=== PATIENT | female | born 1970 | race Hispanic/Latino ===

== ENCOUNTER 2018-07-15 23:58 | Emergency (ER) | payer OTHER ==
[2018-07-16 01:02] LABS: #Lymphocytes 2.6 thou/uL (1.20-3.40); #Monocytes 0.4 thou/uL (0.11-0.59); #Neutrophils 7.7 thou/uL (1.40-6.50); %Basophils 0.2 % (0.0-1.0); %Eosinophils 0.4 % (0.0-10.0); %Lymphocytes 23.8 % (21.0-51.0); %Monocytes 3.6 % (0.0-10.0); Hemoglobin 12.9 g/dL (12.0-16.0); Mean Corpuscular Hemoglobin 26.6 pg (27.0-31.0); Mean Corpuscular Volume 83.4 fL (78.0-98.0); Platelet Count 360 thou/uL (130-400); RBC Distribution Width 15.1 % (11.5-14.5); Red Blood Cell (RBC) Count 4.83 mill/uL (4.20-5.40); White Blood Cell (WBC) Count 10.7 thou/uL (4.8-10.8)
[2018-07-16 01:19] LABS: ALT (SGPT) 18 U/L (8-55); AST (SGOT) 14 U/L (5-34); Albumin 4.2 g/dL (3.5-5.0); Alkaline Phosphatase 114 U/L (40-150); Anion Gap 15 mmol/L (10-20); BUN (Urea Nitrogen) 9 mg/dL (7.0-18.7); Bilirubin, Total 0.3 mg/dL (0.2-1.2); Calc. Creatinine Clearance 0 mL/min (70-130); Calcium 9.9 mg/dL (7.8-10.44); Carbon Dioxide 23 mmol/L (22-29); Chloride 108 mmol/L (98-107); Estimated GFR-MDRD 70; Globulin 3.7 g/dL (2.4-3.5); Glucose 151 mg/dL (70-105); Potassium 3.9 mmol/L (3.5-5.1); Protein, Total 7.9 g/dL (6.0-8.3); Sodium 142 mmol/L (136-145)
== END 2018-07-16 01:54 | disposition home or self-care (01) ==
LOC: ERS 23:58
DX: J02.9 Acute pharyngitis, unspecified (principal); I10 Essential (primary) hypertension; F17.210 Nicotine dependence, cigarettes, uncomplicated; Z79.899 Other long term (current) drug therapy
CPT/HCPCS: 36415; 80053; 85025; 87081; 87430; 99283

== ENCOUNTER 2018-08-04 13:49 | Observation (INO) | payer OTHER ==
[2018-08-04 14:25] LABS: #Basophils 0.2 thou/uL (0.0-0.2); #Eosinphils 0.1 thou/uL (0.0-0.7); #Lymphocytes 4.1 thou/uL (1.20-3.40); #Monocytes 0.7 thou/uL (0.11-0.59); #Neutrophils 7.8 thou/uL (1.40-6.50); %Basophils 1.5 % (0.0-1.0); %Lymphocytes 31.7 % (21.0-51.0); %Monocytes 5.4 % (0.0-10.0); %Neutrophils 60.4 % (42.0-75.0); Hemoglobin 13.4 g/dL (12.0-16.0); Mean Corpuscular HGB CONC 31.6 g/dL (32.0-36.0); Mean Corpuscular Hemoglobin 25.2 pg (27.0-31.0); Mean Corpuscular Volume 79.7 fL (78.0-98.0); Mean Platelet Volume 6.6 fL (7.4-10.4); Platelet Count 353 thou/uL (130-400); RBC Distribution Width 14.7 % (11.5-14.5); Red Blood Cell (RBC) Count 5.34 mill/uL (4.20-5.40); White Blood Cell (WBC) Count 12.9 thou/uL (4.8-10.8)
[2018-08-04 14:33] LABS: INR-International Normal Ratio 0.9; PTT 29.9 SEC (22.9-36.1); Prothrombin Time 12.4 SEC (12.0-14.7)
[2018-08-04 14:40] LABS: Anion Gap 17 mmol/L (10-20); BUN (Urea Nitrogen) 9 mg/dL (7.0-18.7); Calc. Creatinine Clearance 0 mL/min (70-130); Calcium 10.6 mg/dL (7.8-10.44); Carbon Dioxide 23 mmol/L (22-29); Chloride 104 mmol/L (98-107); Estimated GFR-MDRD 75; Glucose 100 mg/dL (70-105); Potassium 4.2 mmol/L (3.5-5.1); Sodium 140 mmol/L (136-145)
[2018-08-04 14:59] LABS: Bilirubin Negative (Negative); Blood, Urine Trace (Negative); Clarity Clear (Clear); Glucose, Urine (Dipstick) Negative (Negative); Leukocyte Negative (Negative); Nitrite Negative (Negative); Protein, Urine (Dipstick) Negative (Neg-Trace); Specific Gravity, Urine Greater than 1.035 (1.002-1.036); Urobilinogen 0.2 mg/dL (0.2-1.0); pH, Urine 6.5 (5.0-9.0)
[2018-08-04 15:00] LABS: RBC/HPF 0-3 HPF (0-3); Squamous Epithelial 0-3 HPF (0-3); WBC/HPF 0-3 HPF (0-3)
[2018-08-04 15:01] LABS: Bacteria/HPF None Seen HPF (None Seen)
[2018-08-04 15:02] LABS: Pregu Control Background? CLEAR/WHITE (CLR/WHITE); Pregu Control Bar Appear? YES (CONTROL BAR); Specific Gravity Greater than 1.035 (1.002-1.036)
[2018-08-04 15:04] LABS: Pregnancy Test - Urine (BHCG) Negative (Negative)
[2018-08-04 15:07] LABS: Amphetamine Not Detected (NotDetected); Barbiturates Screen Not Detected (NotDetected); Benzodiazepine Screen Not Detected (NotDetected); Cocaine Metabolite Screen Not Detected (NotDetected); Medtox Control Line Valid? VALID (VALID); Methadone Not Detected (NotDetected); Methamphetamine Not Detected (NotDetected); Opiate Screen Detected (NotDetected); Oxycodone Screen Not Detected (NotDetected); Phencyclidine (PCP) Not Detected (NotDetected); THC/Cannabinoid Screen Not Detected (NotDetected); Tricyclic Screen Not Detected (NotDetected)
--- NOTE | 2018-08-04 15:47 | CT ---
CT ANGIOGRAM OF HEAD: Date: 08/04/18 COMPARISON: None. FINDINGS: NONCONTRAST HEAD CT: Limited evaluation due to motion. No parenchymal hemorrhage. No extra-axial hematoma. No midline shif t. Basilar cisterns are patent. Brain volume is age-appropriate. Cortical colon-white matter different iation is preserved. No hydrocephalus. Calvarium is intact. Adequate aeration of the sinuses and mastoid air cells. On the postcontrast images, there is no pathologic enhancement of the brain parenchyma. CT ANGIOGRAM: There is symmetric enhancement and luminal diameter of the distal cervical and intracranial internal carotid arteries. Anterior Circulation: A1 and M1 segments have appropriate enhancement and luminal diameter. Proximal MCA branches and A2 segments are symmetric. Both intracranial vertebral arteries are unremarkable. Bilateral PICA artery origins and the basilar artery have appropriate enhancement and luminal diameter. Both P1 segments are unremarkable. IMPRESSION: Unremarkable CT angiogram of the [place]. Results of study discussed with Dr. Mccullough on 08/04/18 at 1438 hours. CODE CR. POS: LASHELL
[2018-08-04] MEDS ORDERED: Iopamidol 370 76% 100 ML VIAL ONE (16:57)
[2018-08-04 18:01] VITALS: BMI 33.5
[2018-08-04] MEDS ORDERED: Ondansetron PF 4 MG/2 ML Vial IVP PRN (18:29)
[2018-08-04] MEDS ORDERED: Acetaminophen 325 MG TAB PO PRN (18:29)
[2018-08-04] MEDS ORDERED: Ondansetron ODT 4 MG TAB SL PRN (18:29)
[2018-08-04] MEDS ORDERED: Aspirin 325 mg Enteric Coated Tablet PO SCH (21:00)
[2018-08-04] MEDS ORDERED: Labetalol HCl 100 MG/20 ML VIAL SLOW IVP PRN (21:32)
[2018-08-04] MEDS ORDERED: hydrALAZINE 20 MG/ML VIAL SLOW IVP PRN (21:32)
[2018-08-04] MEDS ORDERED: Benzonatate 100 MG CAP PO PRN (21:35)
[2018-08-04] MEDS ORDERED: guaiFENesin/Codeine Phosphate 200 mg/20 mg 10 ml UD Cup PO SCH (22:00)
[2018-08-05] MEDS: Sodium Chloride 0.9% 1,000 ML IV SCH ×3 (00:04→20:12)
[2018-08-05 06:14] LABS: #Eosinphils 0.1 thou/uL (0.0-0.7); #Lymphocytes 2.7 thou/uL (1.20-3.40); #Monocytes 0.5 thou/uL (0.11-0.59); #Neutrophils 5.1 thou/uL (1.40-6.50); %Basophils 0.2 % (0.0-1.0); %Eosinophils 1.1 % (0.0-10.0); %Lymphocytes 31.9 % (21.0-51.0); %Monocytes 6.1 % (0.0-10.0); %Neutrophils 60.7 % (42.0-75.0); Hemoglobin 12.2 g/dL (12.0-16.0); Mean Corpuscular HGB CONC 32.6 g/dL (32.0-36.0); Mean Corpuscular Hemoglobin 27.6 pg (27.0-31.0); Mean Corpuscular Volume 84.7 fL (78.0-98.0); Mean Platelet Volume 6.8 fL (7.4-10.4); Platelet Count 334 thou/uL (130-400); RBC Distribution Width 15.1 % (11.5-14.5); Red Blood Cell (RBC) Count 4.42 mill/uL (4.20-5.40); White Blood Cell (WBC) Count 8.4 thou/uL (4.8-10.8)
[2018-08-05 06:17] LABS: Anion Gap 11 mmol/L (10-20); BUN (Urea Nitrogen) 9 mg/dL (7.0-18.7); Calc. Creatinine Clearance 140 mL/min (70-130); Calcium 9.1 mg/dL (7.8-10.44); Carbon Dioxide 25 mmol/L (22-29); Chloride 105 mmol/L (98-107); Cholesterol 136 mg/dl (< 200 Desired); Estimated GFR-MDRD 88; Glucose 91 mg/dL (70-105); HDL Cholesterol 34 mg/dL (>60 Neg Risk); LDL Cholesterol, Calculated 90 mg/dL; Potassium 4.1 mmol/L (3.5-5.1); Sodium 137 mmol/L (136-145); Triglycerides 62 mg/dL (Less than 150)
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
[2018-08-05] MEDS ORDERED: hydrALAZINE 20 MG/ML VIAL SLOW IVP PRN (08:53)
[2018-08-05] MEDS ORDERED: guaiFENesin/Codeine Phosphate 200 mg/20 mg 10 ml UD Cup PO PRN (08:54)
[2018-08-05] MEDS ORDERED: Diabetic Tussin 200 MG/10 ML UDCUP PO PRN (08:54)
--- NOTE | 2018-08-05 11:01 | MRI ---
BRAIN MRI WITHOUT CONTRAST: DATE: 08/05/2018. COMPARISON: 09/29/2014. HISTORY Slurred speech and numbness, transient ischemic attack, assess for acute infarction. TECHNIQUE: Multiplanar, multisequence MR imaging of the brain is provided without contrast. FINDINGS: The diffusion weighted imaging demonstrates no evidence of acute infarction. The axial gradient echo imaging demonstrates no evidence for intracranial hemorrhage. No midline shift, mass effect, or ventricular enlargement is seen. The imaged paranasal sinuses/mastoid air cells demonstrate minimal ethmoid air cell mucosal thickenin g on the left. A stable partially empty sella turcica is noted. Regional bone marrow signal intensity appears gross ly unremarkable. IMPRESSION: No acute findings. POS: LASHELL
[2018-08-05] MEDS ORDERED: diphenhydrAMINE 2% CREAM 28.4 GM TUBE TOP PRN (13:45)
[2018-08-05] MEDS ORDERED: diphenhydrAMINE 25 MG CAP PO PRN (13:45)
[2018-08-05] MEDS: Lisinopril 10 MG TAB PO SCH (14:58)
[2018-08-05] MEDS: Aspirin 325 mg Enteric Coated Tablet PO SCH (14:58)
--- NOTE | 2018-08-05 15:32 | RAD ---
MODIFIED BARIUM SWALLOW: DATE: 08/05/2018. HISTORY: Dysphagia following cerebral infarction. FLUOROSCOPY: Total fluoroscopy time is 2.2 minutes with total dose of 6.58 mGy. FINDINGS: This examination was performed in conjunction with speech pathology. Varying consistencies of thin a nd liquid barium were administered during the exam in addition to barium-soaked cracker as well as 12 .5 mm barium tablet. The patient demonstrates delay in formation of the bolus into the posterior pharynx with mild prematu re spill of contrast prior to initiation of the swallowing mechanism. The patient did demonstrate pe netration with thin liquid barium by cup and straw. No obvious brittney aspiration was appreciated duri ng the exam. The 12.5 mm tablet traversed the upper esophagus without holdup. IMPRESSION: Penetration with thin liquid barium without brittney aspiration seen. POS: LASHELL
--- NOTE | 2018-08-05 17:05 | PRG ---
DATE OF SERVICE: 08/05/2018 SUMMARY: A 48-year-old female with hypertension, tobacco dependence, and obesity, who presented to the emergency room yesterday with dizziness and stroke-like symptoms. CT angiogram of the brain was negative. SUBJECTIVE: The patient continues to have the same weakness. She denies any new focal deficit. She feels weak generally. No fever, chills, headache, or double vision reported. She continues to have blurriness of vision. No chest pain or palpitations reported. OBJECTIVE: VITAL SIGNS: Temperature 97.8, pulse rate of 71, respirations of 16, O2 saturation 97% on room air, blood pressure 131/72. GENERAL: A 48-year-old female in no apparent distress. LUNGS: Clear to auscultation bilaterally. HEART: S1 and S2 present, regular rate and rhythm. No rubs or gallops appreciated. ABDOMEN: Soft, nontender. Bowel sounds present. EXTREMITIES: No edema or calf tenderness. NEUROLOGY: Essentially same as last night. She continues to have left lower extremity weakness more than the right. She also has a diminished sensation in the left lower extremity. Cranial nerves 2 through 12 are normal on examination. She still has blurriness of vision. She continues to have left upper extremity weakness as well as sensory deficits. SKIN: Warm and dry. LYMPH NODES: No palpable lymph nodes in the neck. REVIEW OF SYSTEM: All other review of systems was reviewed and were found negative. CURRENT MEDICATIONS: 1. Lipitor 80 mg at bedtime. 2. Aspirin 81 mg daily. 3. Lisinopril 10 mg daily. DIAGNOSTIC STUDIES: Telemetry monitoring by my review showed sinus rhythm. Echocardiogram showed left ventricular ejection fraction 55% to 60%. MRI of the brain was negative for acute findings. IMPRESSION: 1. Transient ischemic attack, rule out cerebrovascular accident. MRI of the brain was negative for acute infarct. We will continue aspirin as well as statins. Neurology has been consulted. She continues to have the deficit. 2. Swallow dysfunction. She currently has modified barium swallow scheduled. 3. Hypertension. The last blood pressure was 131/72. She is more than 24 hours from ER presentation. We will continue lisinopril 10 mg daily. 4. Hyperlipidemia. LDL is 90. We will continue statins. 5. Obesity with a BMI 33.5. 6. Tobacco dependence. The patient was counseled. 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 8. Recent upper respiratory tract infection. We will continue home dose of Augmentin. PLAN: Plan of care was discussed with the patient. She stated understanding. DISPOSITION: The patient continues to have weakness and is not stable for discharge. We will discuss with Neurology in a.m. Job ID: [id number]
[2018-08-05] MEDS: Amoxicillin/Potassium Clav 875 MG TAB PO SCH (20:13)
[2018-08-05] MEDS ORDERED: guaiFENesin/Codeine Phosphate 200 mg/20 mg 10 ml UD Cup PO SCH (21:00)
[2018-08-05] MEDS ORDERED: Atorvastatin Calcium 40 MG TAB PO SCH (21:00)
[2018-08-06] MEDS: Sodium Chloride 0.9% 1,000 ML IV SCH ×2 (05:35→15:07)
[2018-08-06 06:35] LABS: Folate (Folic Acid) 11.8 ng/mL (7.0-31.4)
[2018-08-06] MEDS: Amoxicillin/Potassium Clav 875 MG TAB PO SCH (08:49)
[2018-08-06] MEDS: Aspirin 325 mg Enteric Coated Tablet PO SCH (08:49)
[2018-08-06] MEDS: Lisinopril 10 MG TAB PO SCH (08:49)
[2018-08-06 11:53] VITALS: TEMP 98.1
[2018-08-06 13:50] VITALS: BP 120/66
--- NOTE | 2018-08-06 21:37 | DIS ---
DATE OF ADMISSION: 08/04/2018 DATE OF DISCHARGE: 08/06/2018 DISCHARGE DIAGNOSES: 1. Anxiety disorder. TIA ruled out. 2. Hypertension. 3. Hyperlipidemia. 4. Obesity. 5. Tobacco dependence. 6. History of Holcomb palsy. 7. Recent upper respiratory tract infection. CONSULTATIONS: Neurology, Dr. Maier. HOSPITAL COURSE: This is a pleasant 48-year-old woman, who presented with dizziness and left-sided weakness, prompting admission to the hospital to rule out TIA/ CVA. She has undergone multiple studies as indicated above, all unremarkable. She was seen by Dr. Maier of Neurology, who felt her symptoms are not consistent with TIA/CVA. Per Dr. Maier, her symptoms seemed to be associated with anxiety. Per her , she has been experiencing significant amount of stress recently. The patient has noted mild improvement with her left-sided weakness and some improved sensation. On admission, she had complete weakness and felt she was experiencing difficulty with her speech, specifically slurred speech as well as expressive aphasia. She had complete numbness of the left side from her face down to her foot. Today, the patient is soft-spoken, we were able to communicate without any difficulties. No slurring of her speech. She is experiencing dull sensation to her left side as opposed to completely numbness. She has undergone a modified barium swallow study, which was normal. She has been assessed by PT/OT and advised to continue with PT/OT evaluation as an outpatient as well as speech therapy given the fact that she continues with some residual weakness and reduced sensation. She is able to mobilize with the walker, also requiring a shower chair. On the day of discharge, the patient is feeling better. She denies having any headaches or vision changes. She denies chest pain, palpitations, or shortness of breath. Denies any nausea or vomiting. No abdominal pain. Denies any urinary symptoms or bowel changes. Has been mobilizing with assistance. The patient expresses she is eager to go home, though she does understand she will require PT/OT and assistive devices. She has been deemed stable for discharge as per Dr. Maier and Dr. Ledbetter. Strength is 2/4 on the left side and 4/4 on the right side with reduced sensation on the upper and lower extremities. Exam is otherwise unremarkable. Lungs clear, heart sounds normal. Abdomen unremarkable. Soft, nontender, nondistended. PROCEDURES: None. LABORATORY DATA: White blood count 8.4, hemoglobin of 12.2, hematocrit 37.4, platelets 334. Sodium 137, potassium 4.1, BUN 9, creatinine 0.71, eGFR 80, glucose 91. LFTs unremarkable. Troponin I negative. CRP 1.64. Triglycerides 62, cholesterol 136, LDL 90, HDL 34 (risk ratio of 4). Urine notable for trace blood. Opioids detected in urine, otherwise negative. Toxicology; opioids detected, otherwise negative. IMAGING DATA: 1. Head and neck CTA, August 04, 2018. Unremarkable CT angiogram of [place]. 2. Brain MRI, 08/05/2018; no acute findings. 3. Modified barium swallow, 08/05/2018; penetration with thin liquid barium without brittney aspiration seen. 4. Echocardiogram, 08/05/2018; left ventricular size is mildly increased. Ejection fraction estimated at 55% to 65%. Left ventricular size is normal. Left atrium is of normal size. Structurally normal mitral valve and aortic valve with no evidence of stenosis or regurgitation. Trace tricuspid regurgitation. Mildly elevated pulmonary artery pressure. DISCHARGE MEDICATIONS: 1. Lipitor 80 mg at bedtime (new medication, prescription provided). 2. Aspirin 81 mg p.o. daily (new medication, prescription provided). 3. Continue lisinopril 10 mg daily. 4. The patient to complete a course of antibiotics as per primary care physician. DISCHARGE CONDITION: Stable. DISCHARGE ACTIVITY: As tolerated, with assistive device. DISCHARGE DIET: Heart healthy. FOLLOWUP: The patient is to follow up with primary care physician within 1 to 2 weeks. PT/OT evaluation as an outpatient. DISPOSITION: Home on 08/06/2018. Job ID: [id number] [facility]
== END 2018-08-06 15:39 | disposition home or self-care (01) ==
LOC: SCSER 13:49 → 2SE 15:20
PROVIDERS: ADMIT Internal Medicine; ATTEND Internal Medicine
DX: R42 Dizziness and giddiness (principal); R29.898 Other symptoms and signs involving the musculoskeletal system; R47.81 Slurred speech; F17.210 Nicotine dependence, cigarettes, uncomplicated; I10 Essential (primary) hypertension; F41.9 Anxiety disorder, unspecified; E78.5 Hyperlipidemia, unspecified; E66.9 Obesity, unspecified; Z68.33 Body mass index [BMI] 33.0-33.9, adult; Z79.899 Other long term (current) drug therapy; Z91.010 Allergy to peanuts; Z91.040 Latex allergy status
CPT/HCPCS: 0042T; 36415; 36416; 51701; 70496; 70551; 74230; 80048; 80061; 80306; 81003; 81015; 81025; 82607; 82746; 84443; 84484; 85025; 85610; 85652; 85730; 86140; 90471; 90732; 93005; 93306; 96360; 96361; A4353; G0009; G0378; G8978-GP-CL; G8979-GP-CJ; G8987-GO-CK; G8988-GO-CJ; G8996-GN-CI; G8996-GN-CL; G8997-GN-CI; G8997-GN-CJ

== ENCOUNTER 2019-01-07 11:40 | Emergency (ER) | payer OTHER ==
--- NOTE | 2019-01-07 12:57 | RAD ---
TWO VIEWS CHEST: DATE: 01/07/2019. PROVIDED CLINICAL HISTORY: Chest pain. FINDINGS: Comparison 10/11/2008. Cardiac and mediastinal silhouette is within normal limits. No focal consolid ation, pleural fluid, or pneumothorax apparent. IMPRESSION: No evidence for an acute cardiopulmonary process. POS: OFF
[2019-01-07 13:02] LABS: #Basophils 0.1 thou/uL (0.0-0.2); #Eosinphils 0.2 thou/uL (0.0-0.7); #Lymphocytes 1.9 thou/uL (1.20-3.40); #Monocytes 0.3 thou/uL (0.11-0.59); #Neutrophils 3.9 thou/uL (1.40-6.50); %Basophils 0.9 % (0.0-1.0); %Eosinophils 3.1 % (0.0-10.0); %Lymphocytes 29.4 % (21.0-51.0); %Neutrophils 61.6 % (42.0-75.0); Mean Corpuscular HGB CONC 32.9 g/dL (32.0-36.0); Mean Corpuscular Volume 88.2 fL (78.0-98.0); Mean Platelet Volume 7.4 fL (7.4-10.4); Platelet Count 276 thou/uL (130-400); RBC Distribution Width 14.8 % (11.5-14.5); Red Blood Cell (RBC) Count 4.12 mill/uL (4.20-5.40); White Blood Cell (WBC) Count 6.3 thou/uL (4.8-10.8)
[2019-01-07 13:39] LABS: ALT (SGPT) 115 U/L (8-55); AST (SGOT) 63 U/L (5-34); Albumin 3.9 g/dL (3.5-5.0); Alkaline Phosphatase 83 U/L (40-150); Anion Gap 13 mmol/L (10-20); BUN (Urea Nitrogen) 5 mg/dL (7.0-18.7); Bilirubin, Total 0.4 mg/dL (0.2-1.2); Calc. Creatinine Clearance 0 mL/min (70-130); Calcium 9.1 mg/dL (7.8-10.44); Carbon Dioxide 25 mmol/L (22-29); Chloride 106 mmol/L (98-107); Estimated GFR-MDRD 85; Globulin 2.5 g/dL (2.4-3.5); Glucose 162 mg/dL (70-105); Lipase 10 U/L (8-78); Potassium 3.5 mmol/L (3.5-5.1); Protein, Total 6.4 g/dL (6.0-8.3); Sodium 140 mmol/L (136-145)
--- NOTE | 2019-01-07 14:40 | CT ---
CT HEAD NONCONTRAST: Date: 01/07/19 INDICATION: Pain, left-sided weakness. FINDINGS: There is no intracranial hemorrhage, mass effect, midline shift, or ventriculomegaly. The paranasal s inuses are free from acute fluid level. IMPRESSION: No acute intracranial hemorrhage or mass effect. POS: TPC
[2019-01-07 15:23] LABS: Bilirubin Negative (Negative); Blood, Urine Negative (Negative); Clarity CLEAR (Clear); Glucose, Urine (Dipstick) Negative (Negative); Leukocyte Negative (Negative); Nitrite Negative (Negative); Protein, Urine (Dipstick) Negative (Neg-Trace); pH, Urine 6.5 (5.0-9.0)
[2019-01-07] MEDS ORDERED: Aspirin Chewable 81 MG TAB ONE (15:35)
--- NOTE | 2019-01-09 11:11 | EKG ---
Test Reason : CP Blood Pressure : / mmHG Vent. Rate : 079 BPM Atrial Rate : 079 BPM P-R Int : 142 ms QRS Dur : 084 ms QT Int : 376 ms P-R-T Axes : 025 010 018 degrees QTc Int : 431 ms Normal sinus rhythm Normal ECG Confirmed by DR. Rafael DUGGAN ([id number]) on 01/09/2019 11:11:10 AM Referred By: Confirmed By:DR. Rafael DUGGAN
== END 2019-01-07 15:45 | disposition home or self-care (01) ==
LOC: ERS 11:40
DX: K21.9 Gastro-esophageal reflux disease without esophagitis (principal); I10 Essential (primary) hypertension; F17.210 Nicotine dependence, cigarettes, uncomplicated; Z71.6 Tobacco abuse counseling; Z79.899 Other long term (current) drug therapy; Z86.73 Personal history of transient ischemic attack (TIA), and cerebral infarction without residual deficits
CPT/HCPCS: 36415; 70450; 71046; 80053; 81003; 83690; 83880; 84484; 85025; 93005; 94640; 94760; 99406; J7620

== ENCOUNTER 2019-02-03 23:43 | Emergency (ER) | payer OTHER ==
[2019-02-04] MEDS ORDERED: Ondansetron PF 4 MG/2 ML Vial ONE (00:13)
[2019-02-04 00:31] LABS: #Basophils 0.1 thou/uL (0.0-0.2); #Eosinphils 0.2 thou/uL (0.0-0.7); #Lymphocytes 2.9 thou/uL (1.20-3.40); #Monocytes 0.4 thou/uL (0.11-0.59); #Neutrophils 11.4 thou/uL (1.40-6.50); %Basophils 0.4 % (0.0-1.0); %Lymphocytes 19.4 % (21.0-51.0); %Monocytes 2.6 % (0.0-10.0); %Neutrophils 76.7 % (42.0-75.0); Hemoglobin 12.8 g/dL (12.0-16.0); Mean Corpuscular HGB CONC 34.4 g/dL (32.0-36.0); Mean Corpuscular Hemoglobin 29.6 pg (27.0-31.0); Mean Corpuscular Volume 86.2 fL (78.0-98.0); Mean Platelet Volume 7.2 fL (7.4-10.4); Platelet Count 335 thou/uL (130-400); RBC Distribution Width 13.4 % (11.5-14.5); Red Blood Cell (RBC) Count 4.31 mill/uL (4.20-5.40); White Blood Cell (WBC) Count 14.9 thou/uL (4.8-10.8)
[2019-02-04 00:52] LABS: Bilirubin Negative (Negative); Blood, Urine Trace (Negative); Clarity CLEAR (Clear); Glucose, Urine (Dipstick) Negative (Negative); Leukocyte Negative (Negative); Nitrite Negative (Negative); Protein, Urine (Dipstick) Negative (Neg-Trace); Specific Gravity, Urine 1.006 (1.002-1.036); Urobilinogen 0.2 mg/dL (0.2-1.0); pH, Urine 6.5 (5.0-9.0)
[2019-02-04 00:53] LABS: ALT (SGPT) 26 U/L (8-55); AST (SGOT) 17 U/L (5-34); Albumin 4.3 g/dL (3.5-5.0); Alkaline Phosphatase 105 U/L (40-150); Anion Gap 15 mmol/L (10-20); BUN (Urea Nitrogen) 17 mg/dL (7.0-18.7); Bilirubin, Total 0.3 mg/dL (0.2-1.2); Calc. Creatinine Clearance 0 mL/min (70-130); Calcium 9.6 mg/dL (7.8-10.44); Carbon Dioxide 21 mmol/L (22-29); Chloride 103 mmol/L (98-107); Estimated GFR-MDRD 45; Globulin 2.9 g/dL (2.4-3.5); Glucose 139 mg/dL (70-105); Lipase 28 U/L (8-78); Potassium 3.7 mmol/L (3.5-5.1); Protein, Total 7.2 g/dL (6.0-8.3); Sodium 135 mmol/L (136-145)
[2019-02-04 00:55] LABS: Bacteria/HPF None Seen HPF (None Seen); Hyaline Casts/LPF 0-3 HYALINE CAST LPF (0-3 Hyaline); RBC/HPF 0-3 HPF (0-3); Squamous Epithelial None Seen HPF (0-3); WBC/HPF None Seen HPF (0-3)
[2019-02-04 01:10] LABS: Pregnancy Test - Urine (BHCG) Negative (Negative); Pregu Control Background? CLEAR/WHITE (CLR/WHITE); Pregu Control Bar Appear? YES (CONTROL BAR); Specific Gravity 1.006 (1.002-1.036)
[2019-02-04] MEDS ORDERED: Metoclopramide HCl 10 MG/2 ML VIAL ONE (01:52)
[2019-02-04 04:15] LABS: Troponin I Less than 0.010 ng/mL (< 0.028)
--- NOTE | 2019-02-04 07:36 | CT ---
PRELIMINARY REPORT/[facility]/EMERGENCY AFTER HOURS PROCEDURE: EXAM: CT Abdomen and Pelvis With Contrast EXAM DATE/TIME: 02/04/2019 12:56 AM CLINICAL HISTORY: 48 years old, female; Abdominal pain; Acute; Patient HX: F48, luq abd pain that began tonight. Surgic al history of appendectomy, surgical history of cholecystectomy TECHNIQUE: Imaging protocol: Axial computed tomography images of the abdomen and pelvis with intravenous contras t. Coronal reformatted images were created and reviewed. COMPARISON: No relevant prior studies available. FINDINGS: ABDOMEN: Liver: No acute findings. No mass. Gallbladder and bile ducts: Prior cholecystectomy. Pancreas: No acute findings. No mass. No ductal dilation. Spleen: No acute findings. No mass. Adrenals: No acute findings. No mass. Kidneys and ureters: Small left lower renal cortical exophytic lesion measuring up to 1.5 cm is diffi cult to evaluate on this routine CT abdomen and enhancing/solid component not excluded. No hydronephrosis. Stomach and bowel: No obstruction. Appendix: No evidence of appendicitis. PELVIS: Bladder: No acute findings. Reproductive: No acute findings. ABDOMEN and PELVIS: Intraperitoneal space: No free air. No significant fluid collection. Bones/joints: No acute fracture. Soft tissues: No acute findings. Vasculature: No acute findings. No abdominal aortic aneurysm. Lymph nodes: No significant lymphadenopathy. IMPRESSION: No acute findings. Small left renal cortical lesion described above; recommend further evaluation/followup with renal ultrasound or renal protocol CT/MR to exclude renal cell carcinoma. Thank you for allowing us to participate in the care of your patient. Dictated and Authenticated by: He Sotelo MD 02/04/2019 1:52 AM Central Time ([place] & [place]) FINDINGS: CT Abdomen Pelvis W Con History: Abdominal pain. Comparison: None. Findings: Small mass inferior pole left kidney measures greater than fluid attenuation, not definitively a cyst . Mass measures up to 1.5 cm. Impression: Findings and impression are concordant with the preliminary report. Transcribed Date/Time: 02/04/2019 8:53 AM
--- NOTE | 2019-02-04 07:46 | RAD ---
Portable chest: HISTORY: Chest pain COMPARISON: 12/31/2013 FINDINGS: Lung kerns are clear. Heart and mediastinum appear unremarkable. Vascularity is normal. Visualized osseous structures unremarkable. IMPRESSION: No acute finding
--- NOTE | 2019-02-06 11:53 | EKG ---
Test Reason : Blood Pressure : / mmHG Vent. Rate : 103 BPM Atrial Rate : 103 BPM P-R Int : 144 ms QRS Dur : 078 ms QT Int : 310 ms P-R-T Axes : 052 035 005 degrees QTc Int : 406 ms Sinus tachycardia Otherwise normal ECG Confirmed by RICKIE HUGHES DO ([id number]), editorial director ASHLEY GAINES ([id number]) on 02/06/2019 11:53:34 AM Referred By: Confirmed By:RICKIE HUGHES DO
== END 2019-02-04 04:29 | disposition home or self-care (01) ==
LOC: ERS 23:43
DX: R07.89 Other chest pain (principal); R11.0 Nausea; R10.12 Left upper quadrant pain; I10 Essential (primary) hypertension; F17.210 Nicotine dependence, cigarettes, uncomplicated; Z79.899 Other long term (current) drug therapy
CPT/HCPCS: 36415; 71045; 74177; 80053; 81003; 81015; 81025; 83690; 84484; 85025; 93005; 96361; 96365; 96375; J2405; J2765

== ENCOUNTER 2019-02-12 10:29 | Outpatient (CLI) | payer OTHER ==
[~2019-02-12 10:29] MED LIST: Iopamidol 370 76% 100 ML VIAL ONE
--- NOTE | 2019-02-12 13:06 | CT ---
CT ABDOMEN AND PELVIS WITH AND WITHOUT CONTRAST: HISTORY: Indeterminate left renal mass noted on recent CT study. Abdominal pain. History of appendectomy and cholecystectomy. COMPARISON: Exam from 02/04/2019. Review is also made of a 12/31/[address] study. FINDINGS: ABDOMEN: The lung bases are clear. The liver shows some mild fatty change. It is within normal limits in size. The spleen is normal in appearance. The pancreas shows no mass or ductal dilatation. The gallbladder has been removed. The right and left adrenal glands are normal. No renal calculi are seen. An exophytic lower pole le ft renal mass is seen along the medial aspect of the kidney. On the pre-contrast images, CT Hounsfie ld unit numbers are 17. On the more arterial phase portion of the exam, CT Hounsfield unit numbers a re 24. On more delayed imaging, the CT Hounsfield unit numbers are 11. This lesion measures approxi mately1.5 cm. It does represent an interval increase in size, as compared to a 2014 study, when it m easured 8 m. There is no significant periaortic adenopathy. PELVIS: Postop appendectomy changes are seen. No adenopathy, mass, or free fluid. No significant bony findings. IMPRESSION: Approximately 1.5 cm, nonenhancing, exophytic mass involving the medial aspect of the lower pole of t he left kidney, most likely a complex cyst. It has minimally increased in size, as compared to a 201 4 study, when it measured more in the 8 mm range. A follow-up CT examination in six months, which co uld be performed as a noncontrast study, to assess stability of size, would be recommended. POS: CET
== END 2019-02-12 10:30 | disposition home or self-care (01) ==
LOC: SCSCT 10:29
PROVIDERS: ATTEND Nurse Practitioner Family
DX: N28.89 Other specified disorders of kidney and ureter (principal)
CPT/HCPCS: 74178; Q9967

== ENCOUNTER 2020-05-24 11:21 | Emergency (ER) | payer OTHER, SELFPAY ==
--- NOTE | 2020-05-24 14:40 | RAD ---
LEFT HAND: 05/14/30 Three views. INDICATIONS: Hand pain. Injury. Carpals appear intact. Mild DJD at the first carpometacarpal joint. Metacarpals and phalanges appear intact. MCP and IP joints are unremarkable. IMPRESSION: No acute findings. POS: AGW
== END 2020-05-24 13:02 | disposition home or self-care (01) ==
LOC: ERS 11:21
DX: S60.222A Contusion of left hand, initial encounter (principal); I10 Essential (primary) hypertension; F17.210 Nicotine dependence, cigarettes, uncomplicated; Z79.899 Other long term (current) drug therapy; X58.XXXA Exposure to other specified factors, initial encounter

== ENCOUNTER 2020-10-08 13:16 | Emergency (ER) | payer SELFPAY ==
[2020-10-08] MEDS ORDERED: Boostrix 0.5 ML (Tdap) VIAL ONE (15:46)
--- NOTE | 2020-10-08 16:59 | RAD ---
THREE VIEWS LEFT HAND: History: Dog bite to hand with pain. FINDINGS: Three views of the left hand shows no evidence of acute fracture or dislocation. No radiopaque foreig n body is seen. Mild dorsal soft tissue swelling is seen. IMPRESSION: No evidence of acute osseous abnormality. POS: EAA
== END 2020-10-08 16:17 | disposition home or self-care (01) ==
LOC: ERS 13:16
DX: S61.452A Open bite of left hand, initial encounter (principal); I10 Essential (primary) hypertension; F17.210 Nicotine dependence, cigarettes, uncomplicated; Z86.73 Personal history of transient ischemic attack (TIA), and cerebral infarction without residual deficits; W54.0XXA Bitten by dog, initial encounter; Z23 Encounter for immunization
CPT/HCPCS: 90471; 90715

== ENCOUNTER 2021-03-14 14:46 | Outpatient (CLI) | payer OTHER | END 2021-03-14 14:47 | disposition home or self-care (01) | LOC: BICRAD 14:46 | PROVIDERS: ATTEND Family Medicine | DX: S23.9XXA Sprain of unspecified parts of thorax, initial encounter (principal); R07.81 Pleurodynia | CPT/HCPCS: 71045; 72072 ==

== ENCOUNTER 2021-08-16 21:36 | Emergency (ER) | payer OTHER ==
[2021-08-16] MEDS ORDERED: Fluorescein Opthalmic Strip ONE (22:57)
[2021-08-16] MEDS ORDERED: Proparacaine 0.5% Opth 15 ML BOT ONE (22:57)
== END 2021-08-17 00:04 | disposition home or self-care (01) ==
LOC: ERS 21:36
DX: H16.002 Unspecified corneal ulcer, left eye (principal); I10 Essential (primary) hypertension; Z86.73 Personal history of transient ischemic attack (TIA), and cerebral infarction without residual deficits; F17.210 Nicotine dependence, cigarettes, uncomplicated; Z79.899 Other long term (current) drug therapy
CPT/HCPCS: 99283

== ENCOUNTER 2024-01-23 11:14 | Outpatient (CLI) | payer BC | END 2024-01-23 11:15 | disposition home or self-care (01) | LOC: BICMAMMO 11:14 | PROVIDERS: ATTEND Nurse Practitioner Family | DX: Z12.31 Encounter for screening mammogram for malignant neoplasm of breast (principal); Z80.3 Family history of malignant neoplasm of breast | CPT/HCPCS: 77063; 77067 ==